=== PATIENT | female | born 1995 | race African-American/Black ===

== ENCOUNTER 2019-11-29 06:28 | Inpatient (IN) ==
[2019-11-29] MEDS ORDERED: ONDANSETRON 4 MG/2 ML VIAL IV PRN ×2 (07:11→19:14)
[2019-11-29] MEDS ORDERED: BUTORPHANOL 2 MG/ML VIAL IV PRN (07:11)
[2019-11-29] MEDS ORDERED: BUTORPHANOL 1 MG/ML VIAL IV PRN (07:11)
[2019-11-29] MEDS ORDERED: ACETAMINOPHEN 325 MG TABLET PO PRN ×2 (07:11→19:14)
[2019-11-29] MEDS ORDERED: OXYTOCIN/LR 20 UNIT/1,000 ML BAG IV SCH (07:30)
[2019-11-29 07:39] LABS: Basophils % 0.3 % (0.0-0.8); Eosinophils # 0.4 10*3/uL (0.0-0.87); Eosinophils % 4.3 % (0.00-10.9); Hemoglobin 11.9 GM/DL (12.0-16.0); Immature Granulocytes % 1.2 %; Immature Granulocytes Absolute 0.12 #; Lymphocytes # 2.4 10*3/uL (1.4-4.0); Lymphocytes % 23.7 % (21.3-54.2); Mean Corpuscular Volume 85.6 FL (87-102); Mean Platelet Volume 12.1 FL (9.6-12.0); Monocytes % 5.4 % (1.7-12.7); Neutrophils % 65.1 % (38.7-73.9); Platelet Count 155 T/CUMM (130-400); Red Blood Count 4.09 MC/CUMM (3.8-5.5); Red Cell Distribution Width 14.6 % (9.3-17.3)
[2019-11-29] MEDS ORDERED: FAMOTIDINE 20 MG/2 ML VIAL IV ONE (08:05)
[2019-11-29] MEDS ORDERED: CITRIC ACID/SODIUM CITRATE 30 ML UDCUP PO ONE (08:05)
[2019-11-29] MEDS ORDERED: LACTATED RINGERS 1,000 ML IV ONE (08:05)
[2019-11-29] MEDS ORDERED: NALOXONE 0.4 MG/ML VIAL IV PRN (08:07)
[2019-11-29] MEDS ORDERED: hydrOXYzine HCL 25 MG/1 ML VIAL IM PRN (08:07)
[2019-11-29] MEDS ORDERED: diphenhydrAMINE 50 MG/1 ML VIAL IV PRN ×2 (08:07)
[2019-11-29] MEDS ORDERED: PROMETHAZINE 25 MG/1 ML VIAL IM ONE (08:07)
[2019-11-29] MEDS ORDERED: fentaNYL 2 MCG/ROPIV 0.2% EPID 100 ML EPIDURAL SCH (08:30)
[2019-11-29] MEDS: LACTATED RINGERS 1,000 ML IV SCH ×3 (09:31→16:19)
[2019-11-29] MEDS: ePHEDrine 50 MG/ML AMP IV PRN ×2 (10:38→10:47)
[2019-11-29 11:12] LABS: Apearance,Urine CLEAR (Clear); Bilirubin,Urine Negative (Negative); Blood, Urine Negative (Negative); Glucose,Urine (UA) Negative (Negative); Ketones,Urine Negative (Negative); Mucus,Urine Occasional /LPF (Occasional); Nitrite,Urine Negative (Negative); Protein,Urine Negative; Urine Color Yellow (Yellow); Urine Specific Gravity 1.011 (1.001-1.035); Urine Urobilinogen < 2.0 EU/DL (0.2-1.0); WBC,Urine <1 /HPF (0-6)
[2019-11-29] MEDS ORDERED: OXYTOCIN 10 UNIT/ML VIAL IM ONE (16:49)
[2019-11-29] MEDS ORDERED: OXYTOCIN/LR 30 UNIT/1,000 ML BAG IV ONE (16:49)
[2019-11-29] MEDS ORDERED: ceFAZolin 3,000 MG in SYRINGE 1 EACH IV ONE (16:49)
[2019-11-29] MEDS ORDERED: ROPIVACAINE 0.5% 30 ML VIAL ONE (18:40)
[2019-11-29 19:03] LABS: Cord Arterial Blood HCO3 24.4 MMOL/L
[2019-11-29 19:06] LABS: Cord Venous Blood HCO3 23.2 MMOL/L; Cord Venous Blood PCO2 46.4 MMHG; Cord Venous Blood PO2 20.6 MMHG
[2019-11-29] MEDS ORDERED: RHO(D) IMMUNE GLOBULIN 300 MCG SYRINGE IM ONE (19:14)
[2019-11-29] MEDS ORDERED: OXYTOCIN/LR 20 UNIT/1,000 ML BAG IV ONE (19:14)
[2019-11-29] MEDS ORDERED: MORPHINE 10 MG/10 ML VIAL ONE (19:23)
[2019-11-29] MEDS ORDERED: DEXAMETHASONE 4 MG/1 ML VIAL ONE (19:24)
[2019-11-29] MEDS ORDERED: LIDOCAINE MPF 2% /EPI 20 ML VIAL ONE (19:24)
[2019-11-29] MEDS ORDERED: LACTATED RINGERS 1,000 ML IV SCH (19:30)
[2019-11-30] MEDS: IBUPROFEN 800 MG TABLET PO PRN ×4 (01:10→23:15)
[2019-11-30] MEDS: ceFAZolin 1,000 MG in SYRINGE 1 EACH IV SCH ×2 (03:24→13:15)
[2019-11-30 05:18] LABS: Basophils % 0.2 % (0.0-0.8); Eosinophils % 0.1 % (0.00-10.9); Hematocrit 33.6 VOL% (35.7-47.0); Hemoglobin 11.4 GM/DL (12.0-16.0); Immature Granulocytes % 1.6 %; Immature Granulocytes Absolute 0.28 #; Lymphocytes # 1.4 10*3/uL (1.4-4.0); Lymphocytes % 7.7 % (21.3-54.2); Mean Corpuscular HGB Conc 33.9 GM/DL (32-36); Mean Corpuscular Volume 85.7 FL (87-102); Mean Platelet Volume 12.3 FL (9.6-12.0); Monocytes % 6.1 % (1.7-12.7); Neutrophils % 84.3 % (38.7-73.9); Platelet Count 160 T/CUMM (130-400); Red Blood Count 3.92 MC/CUMM (3.8-5.5); Red Cell Distribution Width 14.6 % (9.3-17.3)
[2019-11-30] MEDS: MAGNESIUM HYDROXIDE SUSP 30 ML UDCUP PO PRN ×2 (08:46→23:16)
[2019-11-30] MEDS: DOCUSATE SODIUM 100 MG CAPSULE PO SCH ×2 (08:47→21:12)
[2019-11-30] MEDS: MULTIVITAMIN (PRENATAL) TABLET PO SCH (08:47)
[2019-11-30] MEDS ORDERED: LACTATED RINGERS 1,000 ML IV ONE (10:58)
[2019-11-30] MEDS ORDERED: SUMAtriptan 6 MG/0.5 ML VIAL SUBCUT ONE (10:59)
[2019-11-30] MEDS ORDERED: BUTALBITAL/ACETAMIN/CAFFEINE 50-325-40 MG TABLET PO PRN (11:00)
[2019-11-30] MEDS ORDERED: ceFAZolin 1,000 MG in SYRINGE 1 EACH IV SCH (13:00)
[2019-11-30] MEDS ORDERED: SODIUM CHLORIDE 0.9% 100 ML IV ONE (13:31)
[2019-11-30] MEDS ORDERED: BISACODYL 10 MG SUPP RECTAL PRN (20:03)
[2019-11-30] MEDS: SIMETHICONE CHEW 80 MG TABLET PO PRN (21:12)
[2019-11-30] MEDS ORDERED: MAGNESIUM CITRATE 300 ML BOTTLE PO ONE (23:21)
[2019-12-01] MEDS ORDERED: METOCLOPRAMIDE 10 MG TABLET PO SCH
[2019-12-01] MEDS: IBUPROFEN 800 MG TABLET PO PRN ×2 (07:12→13:45)
[2019-12-01 07:30] VITALS: BP 114/58
[2019-12-01] MEDS: MULTIVITAMIN (PRENATAL) TABLET PO SCH (09:33)
[2019-12-01] MEDS: MAGNESIUM HYDROXIDE SUSP 30 ML UDCUP PO PRN (09:33)
[2019-12-01] MEDS: SIMETHICONE CHEW 80 MG TABLET PO PRN (09:33)
[2019-12-01] MEDS: DOCUSATE SODIUM 100 MG CAPSULE PO SCH (16:38)
== END 2019-12-01 15:00 | disposition home or self-care (01) | DRG 788 ==
LOC: N.LDOUT 06:28 → N.LD 06:32 → N.OB 22:00
PROVIDERS: ADMIT Obstetrics & Gynecology; ATTEND Obstetrics & Gynecology
PROC: LDCSECT (ICD-10-PCS; 2019-11-29 18:00)